=== PATIENT | male | born 1985 | race African-American/Black ===

== ENCOUNTER 2017-06-09 03:06 | Emergency (ER) | payer OTHER ==
--- NOTE | 2017-06-09 04:15 | Diagnostic Imaging Report ---
EDIE LY [facility] [address] [facility] [address] [place] [address]. [id number] Report Submission Date: Jun 09, 2017 4:11:29 AM CDT Patient Study Name: RADHA LEGGETT Date: Jun 09, 2017 3:58:53 AM CDT Modality Type: CT\SR Gender: M Description: CT LEG W/O CONTRAST : 85 Institution: [facility] Physician: EDIE LY CT right knee without contrast History: Injury, pain Technique: Images through the knee were obtained without contrast. Multiplanar reconstructions were performed. Findings: No fracture, dislocation or abnormal bone destruction is identified. Osteophyte formation is noted at the distal femur, proximal tibia and patella. There is no joint effusion. Magnetic resonance imaging may be helpful for further evaluation. Impression: 1. Osteoarthritis. 2. No acute abnormality. Electronically signed on Jun 09, 2017 4:11:29 AM CDT by: Fred ROSE
--- NOTE | 2017-06-09 04:42 | ED Physician Documentation ---
Lower Extremity Problem - HISTORIAN Historian: patient - HPI Stated Complaint: Right knee pain Chief Complaint: Lower Extremity Problem Additional Information: old injury 15 years ago, pops occasionally, hurts Location of Injury: R knee Onset: days ago (2) Timing: still present Duration: sudden-Onset Recent Injury: No Where: other (gym) Severity: moderate Quality: pain Exacerbated By: other (playing basketball) Relieved By: rest Further Comments: no - ROS CONST: no problems MS/SKIN/LYMPH: other (hx of knee injury) CVS/RESP: none GI/: none EYES/ENT: none NERUO/PSYCH: denies: headache, difficulty walking, dizziness, anxiety, depression - PAST HX Past History: none PE Risk Factors: none Other History: other (old knee injury) Surgeries/Procedures: none Immunizations: referred to PCP Allergies/Adverse Reactions: Allergies Allergy/AdvReac Type Severity Reaction Status Date / Time No Known Allergies Allergy Verified 06/09/17 03:27 Home Medications: Ambulatory Orders Medication Instructions Recorded NK [NK] 04/26/14 - SOCIAL HX Smoking History: cigarettes Alcohol Use: occasionally Drug Use: none - FAMILY HX Family History: no significant history - VITAL SIGNS Vital Signs: Vital Signs Temp Pulse Resp BP Pulse Ox 98.6 F 82 18 135/78 98 06/09/17 03:10 06/09/17 03:10 06/09/17 03:10 06/09/17 03:10 06/09/17 03:10 - REVIEWED ASSESSMENTS Nursing Assessment Reviewed: Yes Vitals Reviewed: Yes Progress - Results/Orders Results/Orders: ct right knee ordered - Progress Progress: pt. stable entire time in er Critical Care Note - Critical Care Note Total Time (mins): 0 ED Results Lab/Radiology - Lab Results Lab Results: none ordered - Radiology Radiology Impressions: ct knee shows osteophytes - Orders Orders: ED Orders Category Date Time Status CT LEG W/O CONTRAST Stat Exams 06/09/17 Completed Lower Extremity Problem - EXAM General Appearance: no distress Hips: bilateral hip: non-tender, normal inspection, normal range of motion, no evidence of injury Legs: bilateral: non-tender, normal inspection, normal range of motion, no evidence of injury Knees: right: other (tenderness medial aspect of patella, no ligament laxity) Ankle: bilateral: non-tender, normal inspection, normal range of motion, no evidence of injury Foot: bilateral foot: non-tender, normal inspection, normal range of motion, no evidence of injury DTR - Lower Extremities: knee (R): 2+, knee (L): 2+, ankle (R): 2+, ankle (L): 2 + Neuro/Tendon: normal motor functions, normal tendon functions EENT: eye inspection normal, ENT inspection normal, pharynx normal, no signs of dehydration RESPIRATORY: no resp distress, chest non-tender, breath sounds normal CVS: reg rate & rhythm, heart sounds normal JOINT: joints nml, nml ROM, Nml gait/weight bearing. No: ligamentous instability, effusion, click/crepitus VASCULAR: no vascular compromise, pulses full/equal NEURO/PSYCH: oriented X3, CN's nml as tested, motor nml, sensation nml, mood/ affect nml, cognition normal SKIN: warm/dry, normal color BACK: normal inspection, no CVA tenderness Discharge Clincal Impression: Knee osteoarthritis Qualifiers: Osteoarthritis type: post-traumatic Laterality: right Qualified Code(s): M17.31 - Unilateral post-traumatic osteoarthritis, right knee Referrals: Jigna Hatch FNP [Primary Care Provider] - 2 Days Home Medications: Ambulatory Orders NK [NK] 04/26/14 Comments: discharged in stable condition with recommendation for patellar fixation brace and otc ibuprofen Condition: Stable Disposition: 01 HOME, SELF-CARE Decision to Admit: NO Decision Time: 04:30
[2017-06-09 04:50] VITALS: BP 128/77
== END 2017-06-09 04:41 | disposition home or self-care (01) ==
LOC: ED 03:06
DX: M17.31 Unilateral post-traumatic osteoarthritis, right knee (principal)
CPT/HCPCS: 73700; 99283

== ENCOUNTER 2017-07-11 23:02 | Emergency (ER) | payer OTHER ==
[2017-07-11] MEDS ORDERED: HYDROcodone /APAP 10/325 1 EACH TABLET PO ONE (23:10)
[2017-07-11] MEDS ORDERED: AMOXICILLIN 500 MG CAPSULE PO ONE ×3 (23:10→23:15)
[2017-07-11] MEDS ORDERED: HYDROcodone /APAP 5/325 1 EACH TABLET PO ONE (23:11)
[2017-07-11] MEDS ORDERED: AMOXICILLIN 250 MG/5 ML 100ml BTL PO ONE (23:13)
--- NOTE | 2017-07-11 23:19 | ED Physician Documentation ---
Sore Throat/Dental Pain - HISTORIAN Historian: patient - HPI Stated Complaint: Dental Pain Chief Complaint: Dental Pain Additional Information: rt lower quad dental pain onset suddenly after eatine 1 hr ago has prev root conal and fx this tooth approx tooth29 Onset: hours (2) Context: Fractured Tooth, Abscess, Dental Caries Associated Symptoms: severe. denies: fever, chills, sore throat Worsened By: heat, cold - ROS CONST: no problems CVS/RESP: none GI/: nausea. denies: vomiting MS/SKIN/LYMPH: denies: muscle aches NEURO/PSYCH: none - PAST HX Past History: none Other History: none Allergies/Adverse Reactions: Allergies Allergy/AdvReac Type Severity Reaction Status Date / Time No Known Allergies Allergy Verified 06/09/17 03:27 Home Medications: Ambulatory Orders Medication Instructions Recorded NK [NK] 04/26/14 - SOCIAL HX Smoking History: cigarettes Alcohol Use: occasionally Drug Use: none - FAMILY HX Family History: No - VITAL SIGNS Vital Signs: Vital Signs Temp Pulse Resp BP Pulse Ox 98.8 F 87 22 171/51 99 07/11/17 23:05 07/11/17 23:05 07/11/17 23:05 07/11/17 23:05 07/11/17 23:05 - REVIEWED ASSESSMENTS Nursing Assessment Reviewed: Yes Vitals Reviewed: Yes ED Results Lab/Radiology - Orders Orders: ED Orders Category Date Time Status Amoxicillin [Amoxil 250Mg/5Ml] Med 07/11/17 23:13 Once 1,000 mg PO NOW ONE Amoxicillin [Amoxil] Med 07/11/17 23:11 Discontinued 500 mg PO .STK-MED ONE Amoxicillin [Amoxil] Med 07/11/17 23:15 Discontinued 500 mg PO .STK-MED ONE HYDROcodone /APAP 10/325 [[facility] 10/325] Med 07/11/17 23:10 Once 1 each PO NOW ONE HYDROcodone /APAP 5/325 [[facility] 5/325] Med 07/11/17 23:11 Once 2 each PO TAKE HOME ONE Dental Pain Physical Exam - EXAM General Appearance: moderate distress Head/Neck: head nml inspection Eyes: eyes nml inspection Mouth/Throat: lips nml. No: gums nml (red swollen near affected tooth) Ear/Nose: nml inspection Respiratory: no resp. distress, breath sounds nml, respiratory distress CVS: reg. rate & rhythm, heart sounds nml Abdomen: soft, non-tender Extremities: non-tender, nml ROM Skin: warm/dry, normal color Neuro/Psych: anxiety. No: weakness, numbness Discharge Clincal Impression: sental sepsis fr tooth-prev rooot canal Referrals: Jigna Hatch FNP [Primary Care Provider] - 2 Days Home Medications: Ambulatory Orders NK [NK] 04/26/14 Comments: home meds see dentist very soon Condition: Good Disposition: 01 HOME, SELF-CARE Decision to Admit: NO Decision Time: 23:21
[2017-07-11 23:29] VITALS: BP 150/68
== END 2017-07-11 23:28 | disposition home or self-care (01) ==
LOC: ED 23:02
DX: A41.89 Other specified sepsis (principal)
CPT/HCPCS: 99283; A9270-GY

== ENCOUNTER 2017-08-05 19:58 | Emergency (ER) | payer OTHER ==
[2017-08-05] MEDS ORDERED: Lidocaine 1% 5ml(IM or SUTURE)(PAIN CLINIC) IJ ONE (20:10)
[2017-08-05] MEDS ORDERED: BUPIVACAINE HCL/PF 5 MG/ML 10ML VIAL IJ ONE (20:11)
[2017-08-05] MEDS ORDERED: BUPIVACAINE HCL/PF 5 MG/ML 10ML VIAL IV ONE (20:12)
--- NOTE | 2017-08-05 20:13 | ED Physician Documentation ---
Sore Throat/Dental Pain - HISTORIAN Historian: patient - HPI Stated Complaint: Dental pain Chief Complaint: Dental Pain Context: Fractured Tooth, Dental Caries Associated Symptoms: severe (pain) Further Comments: yes (32 year old male patient presents with dental pain, states he is taking amoxil from last visit. Last ER visit 07/11) - ROS CONST: no problems CVS/RESP: none GI/: denies: problems urinating, nausea, vomiting, other MS/SKIN/LYMPH: denies: muscle aches, rash, leg swelling, ankle swelling, other NEURO/PSYCH: denies: none - PAST HX Past History: gum disease Other History: none Allergies/Adverse Reactions: Allergies Allergy/AdvReac Type Severity Reaction Status Date / Time No Known Allergies Allergy Verified 08/05/17 20:10 Home Medications: Ambulatory Orders Medication Instructions Recorded NK [NK] 04/26/14 - SOCIAL HX Smoking History: cigarettes - FAMILY HX Family History: No - VITAL SIGNS Vital Signs: Vital Signs Temp Pulse Resp BP Pulse Ox 84 22 142/91 99 08/05/17 19:58 08/05/17 19:58 08/05/17 19:58 08/05/17 19:58 - REVIEWED ASSESSMENTS Nursing Assessment Reviewed: Yes Vitals Reviewed: Yes Progress - Progress Progress: Treatment options discussed. Patient would like dental block Block placed in left buccal cavity with .5% bupivacaine 3cc and 1% cc lidocaine 1cc. Patient continues to c/o pain, states the block did not help. Medicated with toradol IM, discharged with 2 tabs norco. Patient drove to ER. ED Results Lab/Radiology - Orders Orders: ED Orders Category Date Time Status Bupivacaine HCl/Pf [Marcaine 0.5%] Med 08/05/17 20:11 Once 5 mg IJ NOW ONE Lidocaine 1% 5ml(IM or SUTURE) [Xylocaine] Med 08/05/17 20:10 Once 50 mg IJ NOW ONE Dental Pain Physical Exam - EXAM General Appearance: moderate distress Head/Neck: head nml inspection, trachea midline, no lymphadenopathy, thyroid nml , neck nml inspection Mouth/Throat: lips nml, pharynx nml, voice nml, no drooling, no air way problems , no thrush, membranes nml, widespread dental decay, other (#47 with fracture and caries, no erythema or edema around gum line.) Respiratory: no resp. distress CVS: reg. rate & rhythm Skin: warm/dry Neuro/Psych: No: weakness Discharge Clincal Impression: Pain due to dental caries Referrals: Jigna Hatch FNP [Primary Care Provider] - 2 Days Additional Instructions: Dental Pain Ibuprofen 800mg every 8 hours x 3 days Tylenol 650-1000mg every 4 hours as needed for pain, limit your dose to 4G in 24 hours. Over the counter DenTek - follow package directions. Over the counter Orajel as needed for pain See your dentist as soon as possible Home Medications: Ambulatory Orders NK [NK] 04/26/14 Condition: Stable Disposition: 01 HOME, SELF-CARE Decision to Admit: NO Decision Time: 20:24
[2017-08-05] MEDS ORDERED: HYDROcodone /APAP 5/325 1 EACH TABLET PO ONE (20:23)
[2017-08-05] MEDS ORDERED: KETOROLAC TROMETHAMINE 60 MG/2 ML VIAL IM ONE (20:23)
[2017-08-05 22:08] VITALS: BP 141/89
== END 2017-08-05 20:35 | disposition home or self-care (01) ==
LOC: ED 19:58
DX: K02.9 Dental caries, unspecified (principal)
CPT/HCPCS: J1885; J3490; 64402; 96372; 99283

== ENCOUNTER 2017-09-07 18:45 | Emergency (ER) | payer OTHER ==
[2017-09-07] MEDS ORDERED: Lidocaine 2%Visc 15ml 20 MG/ML UDC PO ONE (19:21)
[2017-09-07] MEDS ORDERED: IBUPROFEN 400 MG TABLET PO ONE (19:21)
[2017-09-07] MEDS ORDERED: AMOXICILLIN 500 MG CAPSULE PO ONE (19:21)
[2017-09-07] MEDS ORDERED: oxyCODONE/ACETAMINOPHEN 5/325 TABLET PO ONE (19:21)
--- NOTE | 2017-09-07 19:27 | ED Physician Documentation ---
Sore Throat/Dental Pain - HISTORIAN Historian: patient - HPI Stated Complaint: Dental pain Rt lower Chief Complaint: Dental Pain Additional Information: bit down on bread and hurt tooth Onset: days ago (3) Context: Dental Caries Associated Symptoms: moderate Worsened By: nothing Further Comments: no - ROS CONST: no problems CVS/RESP: none GI/: denies: problems urinating, nausea, vomiting MS/SKIN/LYMPH: denies: muscle aches, rash, leg swelling, ankle swelling NEURO/PSYCH: none - PAST HX Past History: dental surgery Other History: none Immunizations: referred to PCP Allergies/Adverse Reactions: Allergies Allergy/AdvReac Type Severity Reaction Status Date / Time No Known Allergies Allergy Verified 09/07/17 19:02 Home Medications: Ambulatory Orders Medication Instructions Recorded NK [NK] 04/26/14 - SOCIAL HX Smoking History: cigarettes Alcohol Use: none Drug Use: none - FAMILY HX Family History: No - VITAL SIGNS Vital Signs: Vital Signs Temp Pulse Resp BP Pulse Ox 97.5 F L 72 16 140/91 97 09/07/17 18:45 09/07/17 18:45 09/07/17 18:45 09/07/17 18:45 09/07/17 18:45 - REVIEWED ASSESSMENTS Nursing Assessment Reviewed: Yes Vitals Reviewed: Yes Progress - Results/Orders Results/Orders: no testing ordered - Progress Progress: pt. given amoxicillin 500 mg p.o., ibuprofen 800 mg p.o., 2% viscous lidocaine, percocet 5/325 2 p.o. x 1 p.o. in er Critical Care Note - Critical Care Note Total Time (mins): 0 ED Results Lab/Radiology - Lab Results Lab Results: none ordered - Radiology Radiology Impressions: none ordered - Orders Orders: ED Orders Category Date Time Status Amoxicillin [Amoxil] Med 09/07/17 19:21 Once 500 mg PO NOW ONE Ibuprofen [Advil] Med 09/07/17 19:21 Once 800 mg PO NOW ONE Lidocaine 2%Visc 15ml [Xylocaine] Med 09/07/17 19:21 Once 15 mg PO NOW ONE oxyCODONE HCL/ACETAMINOPHEN [Percocet 5-325 mg Tablet] Med 09/07/17 19:21 Once 2 each PO NOW ONE Dental Pain Physical Exam - EXAM General Appearance: alert, moderate distress Head/Neck: head nml inspection, trachea midline, no lymphadenopathy, thyroid nml Eyes: eyes nml inspection, PERRL Mouth/Throat: lips nml, gums nml, pharynx nml, dental tenderness (right lower first premolar), gum swelling around teeth Ear/Nose: nml inspection Respiratory: no resp. distress, breath sounds nml CVS: reg. rate & rhythm, heart sounds nml Abdomen: soft, no organomegaly, normal bowel sounds Extremities: non-tender, nml ROM Skin: warm/dry, normal color Neuro/Psych: No: weakness, numbness, anxiety, depression Discharge Clincal Impression: Dental caries Referrals: Jigna Hatch FNP [Primary Care Provider] - 2 Days Comments: Discharged with scripts for meloxicam 7.5 mg 1 pill twice daily, amoxicilln 500 mg p.o. tid, viscous lidocaine applied to tooth q 1 hour prn and tizanidine 1 pill 4x/day as needed for pain. Condition: Stable Disposition: 01 HOME, SELF-CARE Decision to Admit: NO Decision Time: 19:27
[2017-09-07 19:47] VITALS: BP 141/89
== END 2017-09-07 19:40 | disposition home or self-care (01) ==
LOC: ED 18:45
DX: K02.9 Dental caries, unspecified (principal)
CPT/HCPCS: A9270 ×2; 99283

== ENCOUNTER 2017-12-03 19:39 | Emergency (ER) | payer SELFPAY ==
--- NOTE | 2017-12-03 20:34 | ED Physician Documentation ---
General Adult - HISTORIAN Historian: patient - HPI Chief Complaint: General Adult Further Comments: yes (32 year old male patient presents with complaints of sore throat x 4 days, using halls cough drops with no relief. Vimal headache, c /o cough, c/o chills and body aches.) - ROS CONST: chills. denies: fever, sweating EYES/ENT: sore throat, nasal congestion. denies: nasal drainage CVS/RESP: cough. denies: chest pain, shortness of breath GI/: none MS/SKIN/LYMPH: none NEURO/PSYCH: denies: headache - PAST HX Past History: none Other History: none Allergies/Adverse Reactions: Allergies Allergy/AdvReac Type Severity Reaction Status Date / Time No Known Allergies Allergy Verified 12/03/17 20:44 Home Medications: Ambulatory Orders Medication Instructions Recorded NK [NK] 12/03/17 - SOCIAL HX Smoking History: non-smoker - FAMILY HX Family History: No - VITAL SIGNS Vital Signs: Vital Signs Temp Pulse Resp BP Pulse Ox 114/76 11/22/17 18:15 - REVIEWED ASSESSMENTS Nursing Assessment Reviewed: Yes Vitals Reviewed: Yes Progress - Progress Progress: Reviewed discharge instructions and treatment of viral syndrome. Verbalized understanding ED Results Lab/Radiology - Orders Orders: ED Orders Category Date Time Status INFLUENZA A&B Stat Lab 12/03/17 20:15 Uncollected Rapid Strep [GRP A STREP SCREEN] Stat Lab 12/03/17 19:45 Ordered General Adult Physical Exam - PHYSICAL EXAM GENERAL APPEARANCE: mild distress EENT: eye inspection normal, ENT inspection normal, pharynx normal, no signs of dehydration, SYBIL, no nystagmus, TM's nml RESPIRATORY: no resp distress, chest non-tender, breath sounds normal CVS: reg rate & rhythm, heart sounds normal, equal pulses, no murmur, no gallop , PMI nml, no JVD, no friction rub, 24 ABDOMEN: soft, no organomegaly, normal bowel sounds, no abdominal bruit, no distension SKIN: normal color, warm/dry, NR, INT, PAL, DR EXTREMITIES: non-tender, normal range of motion, no evidence of injury, no edema , J, [employer] NEURO: oriented X3, CN's nml as tested, motor nml, sensation nml, mood/affect nml Discharge Clincal Impression: Viral syndrome, Sore throat (viral) Referrals: Primary Doctor,No [Primary Care Provider] - 2 Days Additional Instructions: supervisor powder and primer canning an over the counter decongestant such as pseudoped, dayquil and Nyquil at your pharmacy. You may want to try Vicks rub on your chest and/or feet. ( Caution: Dayquil and Nyquil contain 325mg of tyelnol/acetaminophen per tablespoon) Cough drops as needed for cough and sore throat. Vitamin C may be helpful in decreasing the length of your cold. Chloraseptic spray or lozenges as needed for throat pain. Warm salt water gargles as needed pain Increase your fluid intake juices, hot tea, non-caffeinated beverages If you are congested - You may want to try Vicks rub on your chest and/or feet Use a humidifier in the room where you sleep. You can also sit in a steam filled bathroom 1-2 times a day. Tylenol or Ibuprofen as needed for fever, pain and body aches. Condition: Stable Disposition: 01 HOME, SELF-CARE Decision to Admit: NO Decision Time: 20:34
[2017-12-03] MEDS ORDERED: GUAIFENESIN/CODEINE 10 ML S/F LIQUID DOSE CUP PO ONE (20:43)
[2017-12-03 22:24] VITALS: BP 136/64
== END 2017-12-03 20:49 | disposition home or self-care (01) ==
LOC: ED 19:39
DX: B34.9 Viral infection, unspecified (principal); J02.9 Acute pharyngitis, unspecified
CPT/HCPCS: 87400; 87880; 99282

== ENCOUNTER 2019-01-22 17:32 | Emergency (ER) | payer SELFPAY ==
[2019-01-22 17:45] VITALS: BP 128/92
--- NOTE | 2019-01-22 18:32 | ED Physician Documentation ---
Sore Throat/Dental Pain - HISTORIAN Historian: patient - HPI Stated Complaint: dental pain Chief Complaint: Dental Pain Additional Information: Patient presents to ED with a 2 day history of worsening left upper dental pain. Patient states he has a dental appointment in the morning but the pain is almost more than he can handle. Onset: days ago (2) Context: Dental Caries Associated Symptoms: L ear pain. denies: fever Worsened By: heat, cold - ROS CONST: no problems CVS/RESP: none GI/: denies: nausea, vomiting MS/SKIN/LYMPH: denies: muscle aches NEURO/PSYCH: headache - PAST HX Past History: none Other History: none Allergies/Adverse Reactions: Allergies Allergy/AdvReac Type Severity Reaction Status Date / Time No Known Allergies Allergy Verified 01/22/19 17:48 Home Medications: Ambulatory Orders Medication Instructions Recorded Penicillin V Potassium [Pen V K] 500 mg PO TID #30 tablet 01/22/19 - SOCIAL HX Smoking History: cigarettes Alcohol Use: none Drug Use: none - FAMILY HX Family History: No - VITAL SIGNS Vital Signs: Vital Signs Temp Pulse Resp BP Pulse Ox 98.1 F 76 16 128/92 98 01/22/19 17:32 01/22/19 17:32 01/22/19 17:32 01/22/19 17:32 01/22/19 17:32 - REVIEWED ASSESSMENTS Nursing Assessment Reviewed: Yes Vitals Reviewed: Yes Dental Pain Physical Exam - EXAM General Appearance: no acute distress, alert Head/Neck: head nml inspection Mouth/Throat: dental tenderness (left upper back molar with dental caries) Respiratory: no resp. distress, breath sounds nml, respiratory distress CVS: reg. rate & rhythm. No: murmur Abdomen: soft. No: tenderness Extremities: non-tender Skin: warm/dry Neuro/Psych: none Discharge Clincal Impression: Pain due to dental caries Prescriptions: Penicillin V Potassium [Pen V K] 500 mg PO TID #30 tablet Referrals: Primary Doctor,No [Primary Care Provider] - 2 Days Additional Instructions: 1. Take antibiotics as directed 2. [place] as needed for pain 3. Mouth rinses 1tsp salt/ 1tsp baking soda in warm water after all meals 4. Follow up with a dentist as soon as possible 5. Return to ER for new or worsening symptoms. Disposition: HOME, SELF-CARE Decision to Admit: NO Date of Decison to Admit: 01/22/19 Decision Time: 18:34
== END 2019-01-22 18:30 | disposition home or self-care (01) ==
LOC: ED 17:32
DX: K02.9 Dental caries, unspecified (principal); Z72.0 Tobacco use
CPT/HCPCS: 99281; 99282

== ENCOUNTER 2019-03-08 17:04 | Emergency (ER) | payer SELFPAY ==
[2019-03-08 17:44] VITALS: BP 134/90
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
--- NOTE | 2019-03-09 06:14 | Diagnostic Imaging Report ---
ELIZABETH RAMIREZ ED [facility] [address] [facility].[address] [address] Report Submission Date: Mar 08, 2019 6:12:39 PM CDT Patient Study Name: RADHA LEGGETT Date: Mar 08, 2019 5:37:55 PM CDT Modality Type: DX Gender: M Description: L SPINE 2 OR 3 VIEWS : 85 Institution: [facility] Physician: ELIZABETH RAMIREZ ED Lumbar spine 3 views Clinical history pain Technique AP lateral cone down Findings: The disc and vertebral body height are normal. See no fracture or lytic change. Impression: Negative lumbar spine Electronically signed on Mar 08, 2019 6:12:39 PM CDT by: James ROSE
--- NOTE | 2019-03-09 06:14 | Diagnostic Imaging Report ---
ELIZABETH RAMIREZ ED [facility] [address] [facility].[address] [address] Report Submission Date: Mar 08, 2019 6:14:23 PM CDT Patient Study Name: ARDHA LEGGETT Date: Mar 08, 2019 5:37:55 PM CDT Modality Type: DX Gender: M Description: KNEE 3 VIEWS : 85 Institution: [facility] Physician: ELIZABETH RAMIREZ ED Right knee 3 views Clinical history pain Technique AP lateral oblique Findings: There is joint space narrowing and mild varus deformity of the knee.. Periarticular spurring is present. There is no fracture or joint effusion. Impression: Degenerative arthritis of the right knee with no acute bony pathology Electronically signed on Mar 08, 2019 6:14:23 PM CDT by: James ROSE
--- NOTE | 2019-03-09 06:16 | Diagnostic Imaging Report ---
ELIZABETH RAMIREZ ED [facility] [address] [facility] [address] [place], [place]. [address] Report Submission Date: Mar 08, 2019 6:11:05 PM CDT Patient Study Name: RADHA LEGGETT Date: Mar 08, 2019 5:37:55 PM CDT Modality Type: DX Gender: M Description: RT HIP 2VIEW COMPLETE : 85 Institution: [facility] Physician: ELIZABETH RAMIREZ ED Pelvis and right hip Clinical history pain Findings: The pelvic ring is intact. Bilateral hip degenerative arthritis is present. There is no fracture or lytic change. An ossicle is present lateral to the acetabulum. CT is recommended for further evaluation Impression: Hip degenerative arthritis. Intact pelvic ring Electronically signed on Mar 08, 2019 6:11:05 PM CDT by: James ROSE
== END 2019-03-08 19:26 | disposition home or self-care (01) ==
LOC: ED 17:04
DX: S33.5XXA Sprain of ligaments of lumbar spine, initial encounter (principal); S79.911A Unspecified injury of right hip, initial encounter; S89.91XA Unspecified injury of right lower leg, initial encounter; V09.9XXA Pedestrian injured in unspecified transport accident, initial encounter; Y93.89 Activity, other specified; Y92.488 Other paved roadways as the place of occurrence of the external cause
CPT/HCPCS: 72100; 72192; 73502; 73562; 99284; 99285

== ENCOUNTER 2019-03-13 10:07 | Emergency (ER) | payer SELFPAY ==
[2019-03-13 10:21] VITALS: BP 128/79
--- NOTE | 2019-03-13 10:27 | ED Physician Documentation ---
Sore Throat/Dental Pain - HISTORIAN Historian: patient - HPI Stated Complaint: Dental pain Chief Complaint: Dental Pain Additional Information: Patient presents to ED with a 4 day history of right lower dental pain. Patient reports the filling in his right lower molar falling out 5 days ago and the pain started the following day. Onset: days ago (4) Context: Fractured Tooth, Possible Infection Associated Symptoms: denies: fever Worsened By: heat, cold - ROS CONST: denies: no problems CVS/RESP: denies: chest pain, shortness of breath GI/: denies: nausea, vomiting MS/SKIN/LYMPH: denies: muscle aches, rash NEURO/PSYCH: denies: headache - PAST HX Past History: none Allergies/Adverse Reactions: Allergies Allergy/AdvReac Type Severity Reaction Status Date / Time No Known Allergies Allergy Verified 03/13/19 10:20 Home Medications: Ambulatory Orders Medication Instructions Recorded Penicillin V Potassium [Pen V K] 500 mg PO TID #30 tablet 03/13/19 - SOCIAL HX Smoking History: cigarettes Alcohol Use: none Drug Use: none - FAMILY HX Family History: No - VITAL SIGNS Vital Signs: Vital Signs Temp Pulse Resp BP Pulse Ox 97.6 F 71 15 128/79 99 03/13/19 10:10 03/13/19 10:10 03/13/19 10:10 03/13/19 10:10 03/13/19 10:10 - REVIEWED ASSESSMENTS Nursing Assessment Reviewed: Yes Vitals Reviewed: Yes Dental Pain Physical Exam - EXAM General Appearance: no acute distress, alert Head/Neck: head nml inspection, no lymphadenopathy Eyes: PERRL Mouth/Throat: lips nml, dental tenderness (right lower ), gum swelling around teeth, widespread dental decay Ear/Nose: nml inspection Respiratory: no resp. distress, breath sounds nml, respiratory distress CVS: reg. rate & rhythm, heart sounds nml Abdomen: soft, normal bowel sounds. No: tenderness Extremities: non-tender Skin: warm/dry Neuro/Psych: none Discharge Clincal Impression: Dental caries Prescriptions: Penicillin V Potassium [Pen V K] 500 mg PO TID #30 tablet Referrals: Primary Doctor,No [Primary Care Provider] - 2 Days Additional Instructions: 1. Take antibiotics as directed. [facility] 2. Tylenol and/or Ibuprofen as needed for pain. these may be taken together at the same time for better pain control 3. Mouth rinses 1tsp salt/ 1tsp baking soda in warm water after all meals 4. Follow up with a dentist as soon as possible 5. Return to ER for new or worsening symptoms. Condition: Stable Disposition: 01 HOME, SELF-CARE Decision to Admit: NO Date of Decison to Admit: 03/13/19 Decision Time: 10:36
== END 2019-03-13 10:35 | disposition home or self-care (01) ==
LOC: ED 10:07
DX: K02.9 Dental caries, unspecified (principal); Z72.0 Tobacco use
CPT/HCPCS: 99281; 99282

== ENCOUNTER 2019-04-10 08:00 | Emergency (ER) | payer SELFPAY ==
[2019-04-10 08:12] VITALS: BP 132/78
--- NOTE | 2019-04-10 08:23 | ED Physician Documentation ---
Sore Throat/Dental Pain - HISTORIAN Historian: patient - HPI Stated Complaint: Dental pain Chief Complaint: Dental Pain Additional Information: Patient presents to ED with a 3 day history of right lower dental pain. Patient cannot afford to go to the dentist. Onset: days ago (3) Context: Dental Caries Associated Symptoms: denies: fever, chills, sore throat Worsened By: heat, cold, other (air) - ROS CONST: no problems CVS/RESP: denies: chest pain, shortness of breath GI/: denies: nausea, vomiting MS/SKIN/LYMPH: denies: muscle aches NEURO/PSYCH: denies: headache - PAST HX Past History: none Other History: none Allergies/Adverse Reactions: Allergies Allergy/AdvReac Type Severity Reaction Status Date / Time No Known Allergies Allergy Verified 04/10/19 08:12 Home Medications: Ambulatory Orders Medication Instructions Recorded Penicillin V Potassium [Pen V K] 500 mg PO Q8 #42 tablet 04/10/19 Tramadol HCl [Ultram] 50 mg PO BID PRN #10 tablet 04/10/19 - SOCIAL HX Smoking History: cigarettes, greater than 1 pack/day Alcohol Use: none Drug Use: none - FAMILY HX Family History: No - VITAL SIGNS Vital Signs: Vital Signs Temp Pulse Resp BP Pulse Ox 98.2 F 77 16 132/78 96 04/10/19 08:07 04/10/19 08:07 04/10/19 08:07 04/10/19 08:07 04/10/19 08:07 - REVIEWED ASSESSMENTS Nursing Assessment Reviewed: Yes Vitals Reviewed: Yes Progress - Progress Progress: 0828 Patient refused to take Tramadol prescription. He stated he had prescriptions at the pharmacy now but could not afford them. Dental Pain Physical Exam - EXAM General Appearance: no acute distress, alert Head/Neck: No: mandibular swelling (R) Mouth/Throat: dental tenderness (right lower molar), widespread dental decay, other Ear/Nose: nml inspection Respiratory: no resp. distress, breath sounds nml CVS: reg. rate & rhythm, heart sounds nml Abdomen: soft, normal bowel sounds Extremities: non-tender Skin: warm/dry, normal color Neuro/Psych: none Discharge Clincal Impression: Pain due to dental caries Prescriptions: Penicillin V Potassium [Pen V K] 500 mg PO Q8 #42 tablet Tramadol HCl [Ultram] 50 mg PO BID PRN #10 tablet PRN Reason: dental pain Referrals: Primary Doctor,No [Primary Care Provider] - 2 Days Additional Instructions: 1. Add tylenol and/or Ibuprofen to Tramadol as needed for pain 2. Baking Soda & Salt water rinses every 6 hours after meals. 1/2 tsp salt, 1/2 tsp baking soda in 1 cup warm water 3. Take antibiotics until gone 4. Follow up with Dental as soon as possible. 5. Return to ED for new or worsening symptoms Condition: Stable Decision to Admit: NO Date of Decison to Admit: 04/10/19 Decision Time: 08:20
== END 2019-04-10 08:28 ==
LOC: ED 08:00
DX: K02.9 Dental caries, unspecified (principal); Z72.0 Tobacco use
CPT/HCPCS: 99282; 99283